=== PATIENT | female | born 1990 | race Caucasian/White ===

== ENCOUNTER 2024-09-20 12:28 | Emergency (ER) | payer SELFPAY ==
[~2024-09-20] VITALS: Ht 160 cm; Wt 68.0 kg
[2024-09-20] MEDS ORDERED: GUAIFENESIN-DM1 EAC1 PO (13:46)
[2024-09-20] MEDS ORDERED: SINGULAIR10 MG PO (13:46)
[2024-09-20 13:56] LABS: CORONAVIRUS COVID-19 AG NEGATIVE (NEGATIVE); INFLUENZA A AG NEGATIVE (NEGATIVE); INFLUENZA B AG NEGATIVE (NEGATIVE); STREPTOCOCCUS GRP A ANTIGEN NEGATIVE (NEGATIVE)
[2024-09-20 14:35] VITALS: PULSE 68; RESP 16; TEMP 97; O2SAT 100
== END 2024-09-20 14:40 | disposition home or self-care (01) ==
LOC: ER 13:15
DX: R05.9 Cough, unspecified (principal); J06.9 Acute upper respiratory infection, unspecified; R53.83 Other fatigue; J45.909 Unspecified asthma, uncomplicated; Z11.52 Encounter for screening for COVID-19
CPT/HCPCS: 83518; 87070; 99283